=== PATIENT | female | born 1940 | race Caucasian/White ===

== ENCOUNTER 2019-05-27 17:10 | Emergency (ER) | payer MEDICARE ==
--- NOTE | 2019-05-27 17:24 | EDM.PDOC ---
ED HPI GENERAL MEDICAL PROBLEM - General Stated Complaint: CHEST PAIN Time Seen by Provider: 05/27/19 17:15 Source of Information: Reports: Patient History Limitations: Reports: No Limitations - History of Present Illness INITIAL COMMENTS - FREE TEXT/NARRATIVE: According to patient she was driving cr around 4 PM and felt sudden onset of epigastric pain, which she claims was sharp and felt tight feeling the epigastrium. There was no radiation of pain.Pain was not asso with nausea, vomiting, shortness of breath, sweating or wheezing. No back pain. no abdominal bloating or heart burn. Pain resolved by itself in 10 minutes. She drove home, and she has missed her lunch. So she ate her lunch and then drove to the emergency room for evaluation.In the emergency room she feels fine. No chest pain or epigastric pain. Pt has no cardiac history. She does have GERD. Onset: Today Onset Date: 05/27/19 Onset Time: 16:00 Duration: Resolved Prior to Arrival Location: Reports: Chest Quality: Reports: Ache Severity: Moderate Associated Symptoms: Denies: Confusion, Cough, Diaphoresis, Fever/Chills, Headaches, Nausea/Vomiting, Rash, Seizure, Shortness of Breath, Syncope, Weakness - Related Data Allergies Allergy/AdvReac Type Severity Reaction Status Date / Time No Known Allergies Allergy Verified 05/27/19 17:20 Home Meds: Home Meds NK [No Known Home Meds] 05/27/19 [History] ED ROS GENERAL - Review of Systems Review Of Systems: See Below Constitutional: Denies: Fever, Chills HEENT: Denies: Ear Pain, Rhinitis, Throat Pain Respiratory: Denies: Shortness of Breath, Pleuritic Chest Pain, Cough, Sputum Cardiovascular: Reports: Other. Denies: Chest Pain, Lightheadedness GI/Abdominal: Denies: Abdominal Pain, Constipation, Diarrhea, Nausea, Vomiting : Denies: Dysuria, Frequency Musculoskeletal: Denies: Joint Pain, Joint Swelling Skin: Denies: Bruising, Pruritis, Rash Neurological: Denies: Confusion, Dizziness, Headache, Numbness, Tingling ED EXAM, GENERAL - Physical Exam Exam: See Below Exam Limited By: No Limitations General Appearance: Alert, WD/WN, No Apparent Distress, Anxious Eye Exam: Bilateral Eye: EOMI, PERRL Ears: Normal External Exam, Normal Canal, Hearing Grossly Normal, Normal TMs Ear Exam: Bilateral Ear: Auricle Normal, Canal Normal, TM normal Nose: Normal Inspection, Normal Mucosa, No Blood Throat/Mouth: Normal Inspection, Normal Lips, Normal Teeth, Normal Gums, Normal Oropharynx, Normal Voice, No Airway Compromise Head: Atraumatic, Normocephalic Neck: Normal Inspection, Supple, Non-Tender, Full Range of Motion Respiratory/Chest: No Respiratory Distress, Lungs Clear, Normal Breath Sounds, No Accessory Muscle Use, Chest Non-Tender Cardiovascular: Normal Peripheral Pulses, Regular Rate, Rhythm, No Edema, No Gallop, No JVD, No Murmur, No Rub GI/Abdominal: Normal Bowel Sounds, Soft, Non-Tender, No Organomegaly, No Distention, No Abnormal Bruit, No Mass Extremities: Normal Inspection, Normal Range of Motion, Non-Tender, Normal Capillary Refill, No Pedal Edema Neurological: Alert, Oriented, CN II-XII Intact, Normal Cognition, Normal Gait, Normal Reflexes, No Motor/Sensory Deficits EKG INTERPRETATION EKG Date: 05/27/19 Rhythm: NSR Rate (Beats/Min): [address]: Normal P-Wave: Present QRS: Normal ST-T: Normal QT: Normal Course - Vital Signs Text/Narrative:: 79 year old female was driving and had epigastric pain sharp and tight for about 10 minutes and resolved by itself. She has missed her lunch, went home ate and then comes to emergency room for evaluation. Presently in the emergency room she is asymptomatic. Her vitals are stable. EKG shows normal sinus rhythm. As she describes epigastric sharp and tight pain, cardiac workup was ordered. Her CBC is normal .CMP is stable. Her troponin is negative. Her EKG is in normal sinus rhythm. She has remained asymptomatic in the emergency room and her vitals are stable. Pt reassured that the episode of epigastric pain could be non specific. This does not appear like angina as the pain went away on its own, Pt has exerted after the episodes and the pain has not reoccurred. This could be several nonspecific things, might have had oesophageal spasm, gastritis, Gerd. Could be lower chest wall pain or spasm which has resolved. Pt reassured, advised to return to emergency room, if she has chest pain which lasts for more than 20 minutes. Or the chest pain radiates into her jaw,neck, back or left shoulder or arm. OR if the chest pain is associated with sweating , wheezing, shortness of breath, nausea , vomiting, incontinence of stool or urine. Last Recorded V/S: Last Vital Signs Temp 98 F 05/27/19 17:46 Pulse 92 05/27/19 17:46 Resp 16 05/27/19 17:46 BP 179/59 H 05/27/19 17:46 Pulse Ox 99 05/27/19 17:46 - Orders/Labs/Meds Orders: Active Orders 24 hr Category Date Time Status EKG Documentation Completion [RC] ASDIRECTED Care 05/27/19 17:25 Ordered Labs: Laboratory Tests 05/27/19 05/27/19 Range/Units 17:00 17:00 WBC 5.8 D (4.0-11.0) K/uL RBC 4.10 (3.80-5.80) M/uL Hgb 12.4 (11.5-16.5) g/dL Hct 38.1 (37.0-47.0) % MCV 93 (76-96) fL MCH 30.2 (27.0-32.0) pg MCHC 32.5 (31.0-35.0) g/dL RDW 12.7 (11.0-16.0) % Plt Count 227 (150-500) K/uL MPV 9.8 (6.0-10.0) fL Neut % (Auto) 64.9 (45.0-70.0) % Lymph % (Auto) 23.7 (20.0-40.0) % [place] % (Auto) 8.2 (3.0-10.0) % Eos % (Auto) 2.9 (1.0-5.0) % Baso % (Auto) 0.3 (0.0-0.5) % Neut # (Auto) 3.77 (2.00-7.50) K/uL Lymph # (Auto) 1.38 L (1.50-4.00) K/uL [place] # (Auto) 0.48 (0.20-0.80) K/uL Eos # (Auto) 0.17 (0.04-0.40) K/uL Baso # (Auto) 0.02 (0.02-0.10) K/uL Sodium 146 H (136-145) mmol/L Potassium 3.9 (3.5-5.1) mmol/L Chloride 107 (98-107) mmol/L Carbon Dioxide 30.6 (21.0-32.0) mmol/L Anion Gap 12.3 (5.0-15.0) mmol/L BUN 19 (8-26) mg/dL Creatinine 0.96 (0.55-1.02) mg/dL Est Cr Clr Drug Dosing TNP Estimated GFR (MDRD) 56 L (>60) MLS/MIN BUN/Creatinine Ratio 19.8 (6-25) Glucose 124 H D (74-100) mg/dL Calcium 9.0 (8.5-10.1) mg/dL Total Bilirubin 0.2 (0.0-1.0) mg/dL AST 20 (15-37) U/L ALT 20 (12-78) U/L Alkaline Phosphatase 75 (46-116) U/L Troponin I < 0.017 (0.000-0.060) ng/mL Total Protein 7.0 (6.4-8.2) g/dL Albumin 3.2 L (3.4-5.0) g/dL Globulin 3.8 (2.2-4.2) g/dL Albumin/Globulin Ratio 0.8 (0.8-2.0) Departure - Departure Time of Disposition: 18:00 Disposition: Home, Self-Care 01 Condition: Fair Clinical Impression: Epigastric pain - Discharge Information *PRESCRIPTION DRUG MONITORING PROGRAM REVIEWED*: Not Applicable *COPY OF PRESCRIPTION DRUG MONITORING REPORT IN PATIENT JULIETA: Not Applicable Referrals: PCP,None [Primary Care Provider] - Additional Instructions: Her CBC is normal .CMP is stable. Her troponin is negative. Her EKG is in normal sinus rhythm. She has remained asymptomatic in the emergency room and her vitals are stable. Pt reassured that the episode of epigastric pain could be non specific. This does not appear like angina as the pain went away on its own, Pt has exerted after the episodes and the pain has not reoccurred. This could be several nonspecific things, might have had oesophageal spasm, gastritis, Gerd. Could be lower chest wall pain or spasm which has resolved. Pt reassured, advised to return to emergency room, if she has chest pain which lasts for more than 20 minutes. Or the chest pain radiates into her jaw,neck, back or left shoulder or arm. OR if the chest pain is associated with sweating , wheezing, shortness of breath, nausea , vomiting, incontinence of stool or urine. - Problem List & Annotations (1) Epigastric pain SNOMED Code(s): 35231131 Code(s): R10.13 - EPIGASTRIC PAIN Status: Acute Current Visit: Yes - Problem List Review Problem List Initiated/Reviewed/Updated: Yes - My Orders Last 24 Hours: My Active Orders 05/27/19 17:25 EKG Documentation Completion [RC] ASDIRECTED - Assessment/Plan Last 24 Hours: My Active Orders 05/27/19 17:25 EKG Documentation Completion [RC] ASDIRECTED Assessment:: Epigastric pain resolved prior to arrival Plan: Her CBC is normal .CMP is stable. Her troponin is negative. Her EKG is in normal sinus rhythm. She has remained asymptomatic in the emergency room and her vitals are stable. Pt reassured that the episode of epigastric pain could be non specific. This does not appear like angina as the pain went away on its own, Pt has exerted after the episodes and the pain has not reoccurred. This could be several nonspecific things, might have had oesophageal spasm, gastritis, Gerd. Could be lower chest wall pain or spasm which has resolved. Pt reassured, advised to return to emergency room, if she has chest pain which lasts for more than 20 minutes. Or the chest pain radiates into her jaw,neck, back or left shoulder or arm. OR if the chest pain is associated with sweating , wheezing, shortness of breath, nausea , vomiting, incontinence of stool or urine.
== END 2019-05-27 18:00 | disposition home or self-care (01) ==
LOC: LB.ED 17:10
DX: R10.13 Epigastric pain (principal)
CPT/HCPCS: 36415; 80053; 84484; 85025; 93005; 99284; 99284-25

== ENCOUNTER 2023-01-31 11:21 | Emergency (ER) | payer MEDICARE | END 2023-01-31 14:05 | disposition home or self-care (01) | LOC: LB.ED 11:21 | DX: K57.92 Diverticulitis of intestine, part unspecified, without perforation or abscess without bleeding (principal); N83.8 Other noninflammatory disorders of ovary, fallopian tube and broad ligament; Z87.891 Personal history of nicotine dependence | CPT/HCPCS: 36415; 74176; 80053; 81001; 85025; 99284 ==